=== PATIENT | male | born 1955 | race Caucasian/White ===

== ENCOUNTER 2023-11-08 09:51 | Inpatient (IN) ==
--- NOTE | 2023-10-16 11:18 | PAT Medication Instructions ---
Medication Instructions Date of Service October 16, 2023 Home Medications aspirin 81 mg chewable tablet 81 mg PO QAM atorvastatin 40 mg tablet (Lipitor) 40 mg PO HS finasteride 5 mg tablet 5 mg PO HS losartan 25 mg tablet 25 mg PO QAM melatonin 5 mg capsule 10 mg PO HS PRN Sleep metoprolol succinate 25 mg tablet,extended release 24 hr 25 mg PO QAM wehwuokh-bhb-kmslh acid 0.4 mg-lycopene 300 mcg-lutein 250 mcg tablet (Centrum Silver) 1 tab PO QAM Steroid Med 1 tab PO UD clopidogrel 75 mg tablet (Plavix) 75 mg PO QAM terazosin 2 mg tablet 2 mg PO HS Continue as directed Steroid Med 1 tab PO UD ASK your prescriber and surgeon aspirin 81 mg chewable tablet 81 mg PO QAM clopidogrel 75 mg tablet (Plavix) 75 mg PO QAM DO NOT take the morning of surgery losartan 25 mg tablet 25 mg PO QAM kwxjhvnm-ujt-cylbm acid 0.4 mg-lycopene 300 mcg-lutein 250 mcg tablet (Centrum Silver) 1 tab PO QAM Take morning of surgery With a small sip of water, OTHERWISE NOTHING TO EAT OR DRINK AFTER MIDNIGHT: metoprolol succinate 25 mg tablet,extended release 24 hr 25 mg PO QAM Take evening before surgery atorvastatin 40 mg tablet (Lipitor) 40 mg PO HS finasteride 5 mg tablet 5 mg PO HS melatonin 5 mg capsule 10 mg PO HS PRN Sleep (if needed) terazosin 2 mg tablet 2 mg PO HS Other Notes If you have any questions please call us at [phone] or [phone] or [phone] or [phone]
--- NOTE | 2023-10-17 13:00 | Anesthesiology Consultation ---
Date of Service October 17, 2023 Assessment & Plan (1) Encounter for pre-operative examination: Plan - Please send optimization form and EKG to provider relations representative (Dr. Pena)- need response regarding abnormal EKG - Attempting to get Holter monitor (awaiting final reading/signature by Dr. Chance/S[facility] cardio per cardio office 10/18/23) Chart Review Chart Review: Acceptable Risk for Surgery (pending response from provider relations representative regarding EKG and Holter monitor results if available ) and Patient seen in Pre Admission Testing - Check BSG AM DOS - Per patient request- please send preop testing to provider relations representative for continuity of care (Dr. Pena) - Please send preop testing to PCP for continuity of care (due to elevated glucose) (FYI- response not needed) Per PAT appt on 10/17/23, was around granddaughter several days ago- no Covid or flu. Patient without symptoms. No recent illness/disease positive tests. Will leave to surgeon's discretion if preop Covid testing needed Last seen by neurology 08/14/2023 = patient seen for evaluation of tremors and headaches. Reports CVA x 2. Most recent stroke March 2023. Characterized by transient weakness and numbness affecting the left upper limb, resolving within a few hours. History of [place] approximately 5 years ago with coronary stenting. Follows with provider relations representative. Will request imaging from hospitalization in March 2023 for review. 30-day mobile cardiac outpatient teletypesetter monitor ordered. Continue current medications. If monitoring analyst does reveal evidence of atrial fibrillation, would recommend an anticoagulant such as Eliquis. Addendum 08/14/2023 = "Additional records received. Echocardiogram normal. Carotid ultrasound indicated less than 50% stenosis of the internal carotid arteries. Brain MRI revealed an acute to subacute infarct involving the right postcentral sulcus. CTA of the head unremarkable. CTA of the neck indicated an 80% stenosis of the proximal right internal carotid artery. As above, although the CTA of the neck suggested an 80% stenosis of the proximal right ICA, this finding was apparently not seen on the carotid ultrasound. Nonetheless, his recent stroke involving the right cerebral hemisphere would potentially indicate a symptomatic right ICA stenosis. I would like this patient to have a follow-up CT angiogram of the neck completed as well. Order placed. " Patient last seen by cardiology 12/14/2022 = seen for cardiac evaluation. Continue current medications. Follow-up in 1 year. Teaching & Discussion Pre-Anesthesia Teaching/Discussion Notes: Instructed NPO after midnight before surgery,except medications with 15 cc of water. Medication instructions provided according to the PAT guidelines. History Surgery Operation Date: 11/08/23 10:50 Proposed Procedures p Right Transcarotid Artery Revascularization - Lucas Martin MD Height/Weight Height: 6 ft 9 in Weight: 114 kg Allergies Allergy/AdvReac Type Severity Reaction Status Date / Time No Known Allergies Allergy Verified 10/16/23 09:10 Medications Home Medications Medication Instructions Recorded Confirmed Last Taken aspirin 81 mg chewable tablet 81 mg PO QAM 08/14/23 10/16/23 Unknown atorvastatin 40 mg tablet (Lipitor) 40 mg PO HS 08/14/23 10/16/23 Unknown finasteride 5 mg tablet 5 mg PO HS 08/14/23 10/16/23 Unknown losartan 25 mg tablet 25 mg PO QAM 08/14/23 10/16/23 Unknown melatonin 5 mg capsule 10 mg PO HS PRN Sleep 08/14/23 10/16/23 Unknown metoprolol succinate 25 mg 25 mg PO QAM 08/14/23 10/16/23 Unknown tablet,extended release 24 hr xjirhnih-gcw-hlqzn acid 0.4 1 tab PO QAM 08/14/23 10/16/23 Unknown mg-lycopene 300 mcg-lutein 250 mcg tablet (Centrum Silver) clopidogrel 75 mg tablet (Plavix) 75 mg PO QAM 10/16/23 10/16/23 Unknown terazosin 2 mg tablet 2 mg PO HS 10/16/23 10/16/23 Unknown prednisone 20 mg tablet See Rx Instructions .Route .COMPLEX 10/17/23 10/17/23 Unknown Past Medical History Medical History (Updated 10/18/23 @ 10:22 by Nabila Gimenez PA-C) Arthritis CAD (coronary artery disease) s/p cardiac stent 2021 Carotid stenosis >80% stenosis to right ICA per 08/2023 neck CTA recently re-started on plavix History of stroke 2015 and 03/2023 no residual deficits Hx of myocardial infarction at age 65 Hyperglycemia Glucose 303 on preop labs 10/17/23- Hgb A1C 6.4 that same day Hyperlipidemia Hypertension Torn Achilles tendon left> following with ortho- no boot needed at this time- finished steroid (Prednisone) 10/18/23- using topical treatment and exercise Exercise / Class Metabolic Activity II 4-5 Yardwork/Stairs/Walk up hill (one flight of stairs- no chest pain or SOB ) Past Family History Family History Other No family history of adverse response to anesthesia Past Surgical History Surgical History History of appendectomy History of colonoscopy History of heart artery stent 2021 1 stent placed>[facility] in [place] Dr. Vann) Past Anesthesia History No Hx of Anesthesia Complications and No Family Hx of Anesthesia Complications History of PONV No Hx of PONV and No Hx of Motion Sickness Social History Smoking Status: Never smoker Do You Dip or Chew Tobacco: No Hx Alcohol Use: Yes Alcohol type: wine alcohol intake frequency: a few times a month Hx Substance Use: No substance use type: does not use Review of Systems Hx of snoring - no sleep study Patient denies chest pain, shortness of breath, dyspnea on exertion, reflux, cough, wheezing, palpitations. No hx of seizures. No hx of blood clots or blood transfusions Physical Exam Vital Signs VITALS BP 125/77 P 75 TEMP 98.0 SP02 94% RESP 16 Constitutional no acute distress ENMT Mouth: no TMJ clicking Thyromental Distance: > or= 3.5 Finger Breadths (3.5) Mallampati Class: I Permanent bridge upper front bridge Crowns to molars Neck neck extension not limited Respiratory normal respiratory effort; no respiratory distress Auscultation: lungs clear to auscultation bilaterally; no wheezes Cardiovascular Rate/Rhythm: regular rate and regular rhythm Heart Sounds: no murmur Vessels: no carotid bruit Musculoskeletal Spine: no pain with cervical ROM Extremities: extremities normal to inspection Psychiatric Orientation: alert Lab Results Anesthesia Preop Results Results Anesthesia Widget: WBC 7.80 K/ul (4.8-10.8) 10/17/23 Hgb 15.1 g/dl (14.0-18.0) 10/17/23 Hct 45.4 % (42.0-52.0) 10/17/23 Plt 238 K/uL (130-400) 10/17/23 Na 135 mmol/L (136-145) L 10/17/23 K 4.6 mmol/L (3.5-5.1) 10/17/23 Cl 99 mmol/L (98-107) 10/17/23 CO2 27 mmol/L (21-32) 10/17/23 BUN 25 mg/dl (6-23) H 10/17/23 Creat 0.88 mg/dl (0.6-1.4) 10/17/23 Glucose Level 303 mg/dl (70-99(Fasting)) H* 10/17/23 PT 11.2 Seconds (9.0-12.0) 10/17/23 PTT 25 Seconds (21-31) 10/17/23 INR 1.0 (0.9-1.1) 10/17/23 TSH 1.540 uIU/mL (0.30-4.50) 08/23/23 HA1c 6.4 % (4.5-5.6) H 10/17/23 Blood Type A Positive 10/17/23 Antibody Screen NEGATIVE 10/17/23 Testing Laboratory Results Elevated glucose (lab called critical result to PCP); Hgb A1C 6.4- surgeon is okay to proceed- will send labs to PCP for continuity of care Electrocardiogram Date: 10/17/23 Findings: + NSR @ (71bpm) T wave abnormality, consider inferolateral ischemia Chest X-Ray Date: 10/17/23 Findings: + NAD Echocardiogram Date: 03/07/23 EF: 55 to 60% LV Function: normal RWMA: + none Other Findings: + diastolic dysfunction (Grade 1) LV wall thickness is upper limits of normal. RV is normal in size and systolic function RVSP 28 mmHg Mild MR Stress Test Date: 05/11/21 Type: nuclear No evidence of myocardial ischemia or infarction. LVEF 50% Other Testing CTA of neck 08/24/2023 = redemonstration of stable appearance of short segment severe focal stenosis at the origin of the right cervical ICA, greater than 80%. No additional hemodynamically significant stenosis, aneurysm, dissection or abrupt vessel occlusion otherwise identified on this study. Mild atherosclerotic changes. Multilevel spondylitic changes of the cervical spine again seen with mild canal and foraminal stenosis. No acute osseous abnormality. Stable chronic opacification and wall thickening of the left maxillary sinus without air-fluid levels. CT of head 03/07/2023 = suspect patchy ill-defined hypodense area in the left periventricular region on the left centrum semioval which may be suggestive of acute/subacute infarct. Recommend diffusion weighted MRI if clinical and p hysical examination findings match the suspected lesion. No acute intracranial hemorrhage. Age-related involutional changes and mild cerebral small vessel disease. Head CT 03/07/23= Normal Head CT angiogram
--- NOTE | 2023-11-08 07:53 | History & Physical Report ---
Date of Service November 08, 2023 Assessment & Plan (1) Stenosis of right carotid artery: Plan: Patient is admitted for a right TCAR. I have discussed the risks options and benefits of the procedure with the patient. The patient understands the risks options and benefits and agrees to the procedure. History of Present Illness Chief Complaint: Right internal carotid artery stenosis Primary Care Provider: Olvin Nava DO Mr Churchill is a 67-year-old gentleman who claims to have had a stroke 8 to 9 years ago. He claims recently in March of last year he had left arm numbness and the funny feeling in his left arm. Workup showed an 80% stenosis of his right internal carotid artery. He recovered from the TIA without any residual. He has not had any further TIAs. He also has no complaints of claudication. He is on aspirin at this point. He was on Plavix for a short period of time and this was stopped. Allergies Allergy/AdvReac Type Severity Reaction Status Date / Time No Known Allergies Allergy Verified 10/16/23 09:10 Home Medications Medication Instructions Recorded Confirmed Type aspirin 81 mg chewable tablet 81 mg PO QAM 08/14/23 10/16/23 History atorvastatin 40 mg tablet (Lipitor) 40 mg PO HS 08/14/23 10/16/23 History finasteride 5 mg tablet 5 mg PO HS 08/14/23 10/16/23 History losartan 25 mg tablet 25 mg PO QAM 08/14/23 10/16/23 History melatonin 5 mg capsule 10 mg PO HS PRN Sleep 08/14/23 10/16/23 History metoprolol succinate 25 mg 25 mg PO QAM 08/14/23 10/16/23 History tablet,extended release 24 hr mylynwrz-bmc-srlda acid 0.4 1 tab PO QAM 08/14/23 10/16/23 History mg-lycopene 300 mcg-lutein 250 mcg tablet (Centrum Silver) clopidogrel 75 mg tablet (Plavix) 75 mg PO QAM 10/16/23 10/16/23 History terazosin 2 mg tablet 2 mg PO HS 10/16/23 10/16/23 History prednisone 20 mg tablet See Rx Instructions .Route .COMPLEX 10/17/23 10/17/23 History Past Med/Surg History Medical History Hyperglycemia Glucose 303 on preop labs 10/17/23- Hgb A1C 6.4 that same day CAD (coronary artery disease) s/p cardiac stent 2021 Torn Achilles tendon left> following with ortho- no boot needed at this time- finished steroid (Prednisone) 10/18/23- using topical treatment and exercise Arthritis History of stroke 2015 and 03/2023 no residual deficits Carotid stenosis >80% stenosis to right ICA per 08/2023 neck CTA recently re-started on plavix Hx of myocardial infarction at age 65 Hypertension Hyperlipidemia Surgical History History of colonoscopy History of appendectomy History of heart artery stent 2021 1 stent placed>[facility] in [place] Dr. Vann) Family History Other No family history of adverse response to anesthesia Social History Smoking Status: Never smoker Second Hand Exposure: Yes (as a child); Do You Dip or Chew Tobacco: No; Hx Alcohol Use: Yes Alcohol type: wine Hx Substance Use: No Preferred Language: Yoruba Manager Story Required: No Beliefs That Will Affect Care: None Current Living Situation: Spouse Feels Safe at Home: Yes Safety Concerns: Feels Safe At This Time Assistive Devices: Brace/Splint/Immobilizer and Glasses Review of Systems All systems reviewed & are unremarkable except as noted in HPI & below Physical Exam Physical Exam: Physical exam he is awake alert and oriented x 3. His vital signs are as per the chart. He is in no apparent distress. His lungs are clear. His heart had a regular rate and rhythm. Abdominal exam is benign. Vascular exam shows radials carotids and superficial temporal arteries 3+2 bilaterally. There are no carotid bruits. Femorals and pedal pulses are all +2 bilaterally. Neurologic exam is intact to motor and sensory function.
--- NOTE | 2023-11-08 10:37 | History & Physical Bridge Note ---
Date of Service November 08, 2023 History & Physical Bridge Note I have examined the patient, reviewed the History & Physical and in the interval since the performance of the History & Physical I have noted the following changes of clinical significance: no changes noted
[2023-11-08] MEDS: LACTATED RINGER'S 1,000 ML BAG IV SCH (10:52)
[2023-11-08] MEDS ORDERED: ATROPINE SULFATE 0.1 MG/ML 10ML SYR IV PRN (12:34)
[2023-11-08] MEDS ORDERED: ONDANSETRON INJ 2 MG/ML 2 ML VIAL IV PRN (12:34)
[2023-11-08] MEDS ORDERED: NALOXONE HCL 0.4 MG/1 ML VIAL/CARP IV PRN (12:34)
[2023-11-08] MEDS ORDERED: FLUMAZENIL 0.1 MG/1 ML 10 ML VIAL IV PRN (12:34)
[2023-11-08] MEDS ORDERED: LABETALOL HCL IV 5 MG/ML 20ML IV PRN (12:34)
[2023-11-08] MEDS ORDERED: fentaNYL citrate PF 100 MCG/2 ML VIAL IV PRN (12:34)
[2023-11-08] MEDS ORDERED: PROMETHAZINE HCL 6.25 MG in SODIUM CHLORIDE 0.9% 50 ML IV PRN (12:34)
[2023-11-08] MEDS ORDERED: ePHEDrine sulfate 50 MG/ML AMP IV PRN (12:34)
[2023-11-08] MEDS ORDERED: fentaNYL citrate PF 100 MCG/2 ML VIAL ONE ×4 (13:02→14:09)
[2023-11-08] MEDS ORDERED: MIDAZOLAM HCL 1 MG/ML 2ML VIAL ONE (13:02)
[2023-11-08] MEDS ORDERED: ROCURONIUM BROMIDE 10 MG/ML 5 ML VIAL IV ONE (13:02)
[2023-11-08] MEDS ORDERED: DEXAMETHASONE SOD INJ 4 MG/ML VIAL ONE (13:02)
[2023-11-08] MEDS ORDERED: PROPOFOL IV EMULSION 10 MG/ML 20 ML VIAL IV ONE (13:02)
[2023-11-08] MEDS ORDERED: LIDOCAINE 2% 2 ML VIAL/AMP(20MG/ML) INFIL ONE (13:02)
[2023-11-08] MEDS ORDERED: GLYCOPYRROLATE 0.2 MG/ML VIAL ONE (13:02)
[2023-11-08] MEDS ORDERED: ONDANSETRON INJ 2 MG/ML 2 ML VIAL ONE (13:02)
[2023-11-08] MEDS ORDERED: SUGAMMADEX SODIUM 200 MG/2 ML VIAL IV ONE (13:07)
[2023-11-08] MEDS ORDERED: HEPARIN SOD (PORCINE) 1000 UNIT/ML ONE (13:08)
[2023-11-08] MEDS ORDERED: PHENYLEPHRINE HCL 25 MG/250 ML NSS IV ONE (13:11)
[2023-11-08] MEDS: CEFAZOLIN 2,000 MG/15 ML SYR IV SCH (13:28)
[2023-11-08] MEDS ORDERED: PROTAMINE SULFATE 10 MG/ML 5 ML VIAL IV ONE (14:44)
[2023-11-08] MEDS: THROMBIN FOR SOLN 20000 UNIT KIT ONE (14:53)
[2023-11-08] MEDS: BUPIVACAINE/EPINEPHRINE 0.5% MPF 1:200,000 10 ML VIAL ONE (14:54)
[2023-11-08] MEDS: VISIPAQUE IV ONE (14:55)
[2023-11-08] MEDS: GELATIN SPONGE SZ 100 ONE (14:56)
[2023-11-08] MEDS: ceFAZolin 330 MG/ML 1 GM VIAL ONE (14:58)
--- NOTE | 2023-11-08 15:00 | Operative Report ---
Post Operative Report Pre & Post Diagnosis Operation Date: 11/08/23 11:20 Pre-Op Diagnosis: Right Carotid Artery Stenosis Post-Op Diagnosis: Right Carotid Artery Stenosis I identified the patient and participated in the time-out.: Yes Procedure Operation Date: 11/08/23 11:20 Actual Procedures p Right Transcarotid Artery Revascularization(Right) ultrasound localization of left femoral vein- Lucas Martin MD Surgeon Lucas Martin MD Visually Impaired Teacher MD [facility] Estimated Blood Loss 15 (.) Findings Consistent with Post-Op Diagnosis Stenosis of the proximal right internal carotid artery. Following stent deployment, less than 20% residual stenosis of the right internal carotid artery on multiple projections Specimens None Anesthesia Type General Complications none None Disposition Accompanied Patient To Recovery: No Disposition: Recovery Room Indications Symptomatic stenosis of the right internal carotid artery measuring > 80% Description of Procedure The patient was taken to the operating room and placed in supine position. After general anesthesia was accomplished the right-side of the neck and left groin were prepped and draped in a sterile manner. A transverse 4cm incision was made on the right neck over the sternal and clavicular heads of the sternocleidomastoid muscle and below the omohyoid. Subcutaneous tissue and platysma were divided using electrocautery. Dissection using Metzenbaum scissors proceeded and the carotid sheath was identified medially. It was divided longitudinally. The internal jugular was retracted medially. The common carotid artery was identified with the Vagus nerve posterolateral. The common carotid artery was mobilized with Metzenbaum scissors and umbilical tape was placed around the artery. Once sufficient length, about 2cm of the common carotid were mobilized, a 5-0 Proline suture was used to place a U-Stitch in the anterior surface of the right common carotid artery. Attention was turned to the left common femoral vein which was then accessed under ultrasound guidance using a micropuncture needle. This was exchanged for the Venous Return Sheath over the provided 0.035'' wire. Blood was aspirated from the flow line followed by flushing of the venous sheath with heparinized saline. The sheath was sutured in place to the patient's skin. 8000U of heparin was then given to obtain an ACT of 277. A micropuncture needle was used to access the common carotid artery in the center of the U-stitch. The micropuncture wire was then advance 4cm into the common carotid artery and the micropuncture needle was removed. The micropuncture sheath was advanced 2-3cm into the common carotid artery and the wire and dilator were removed. Next a 0.035'' J guidewire was was inserted and placed just proximal to the right internal carotid artery lesion without engaging the lesion. The micropuncture sheath was exchanged over the guidewire and the Transcarotid Arterial Sheath was advanced to the 2.5cm marker in correct coaxial orientation and the J wire and dilator were removed. The Sheath was sutured to the patient and then flushed with heparinized saline. No air bubbles visualized during flushing The flow controller was connected to the Transcarotid arterial sheath. Arterial blood was allowed to passively fill the device completely to which it was then connected to the venous return sheath. The flow controller was set to high. The common carotid artery proximal to the access point was then clamped with a Vini and flow reversal was confirmed. A right carotid angiogram was then performed and the right internal carotid artery lesion was marked. HR and systolic blood pressures were adequate with HR of about 80 and blood pressure between 140 and 160 systolic. The lesion was then crossed using a 0.014'' guidewire. The lesion was then pre-dilated using a 5.5mm x 25mm balloon. This balloon was then exchanged and primary stenting was performed with the Transcarotid stent, appropriately sized 7-9mm tapered 30mm Enroute stent. Completion carotid angiography demonstrated patent stent with <30% residual stenosis. No post-dilation was performed. Antegrade flow was restored following release of the common carotid artery clamp. The arterial sheath was removed and U-Stitch tied. The femoral venous sheath was removed and pressure held for 5 min with adequate hemostasis. Adequate hemostasis was seen of the carotid artery. The wound was inspected and adequate hemostasis was obtained. It was then closed with a running 3-0 Vicryl suture for the platysmal layer and a 4-0 subcuticular Vicryl suture for the skin edges. Dermabond was used for dressing. Patient awoke from anesthesia without difficulties. Was neurovascularly intact, moving all extremities and following commands at case completion. The patient left the operating room in satisfactory condition and tolerated the procedure well Dr. Martin was present and scrubbed for the entire procedure. A total of 29mGy, 2.5 min of fluoroscopy time, and 15cc of contrast were used during the procedure. I attest to the content of the Intraoperative Record and any orders documented therein. Any exceptions are noted below. Supervising Physician Co-Signing Physician Notes Lucas Martin MD
--- NOTE | 2023-11-08 15:01 | Post Operative Brief Note ---
Immediate Post Op Note v1 Date of Surgery November 08, 2023 Pre & Post Diagnosis Operation Date: 11/08/23 11:20 Pre-Op Diagnosis: Right Carotid Artery Stenosis Post-Op Diagnosis: Right Carotid Artery Stenosis I identified the patient and participated in the time-out.: Yes Procedure Operation Date: 11/08/23 11:20 Actual Procedures p Right Transcarotid Artery Revascularization(Right) - Lucas Martin MD Ultrasound localization of left common femoral vein Surgeon Lucas Martin MD Accounting Manager Assistant Controller MD Linda PalmMinarchick,PAC Estimated Blood Loss 15 (.) Findings Consistent with Post-Op Diagnosis Anesthesia Type General Complications none Disposition Accompanied Patient To Recovery: No Disposition: Recovery Room
[2023-11-08] MEDS: BUPIVACAINE/EPINEPHRINE 0.5% MPF 1:200,000 30 ML VIAL ONE (15:02)
--- NOTE | 2023-11-08 16:11 | Anesthesiology Progress Note ---
Date of Service November 08, 2023 Anesthesia Post Procedure Vital Signs Vital Signs: Temp Pulse Pulse Resp BP BP BP 11/08/23 16:02 70 19 163/68 H 165/84 H 11/08/23 15:55 76 16 171/72 H 11/08/23 15:45 70 18 177/74 H 11/08/23 15:35 72 16 169/74 H 11/08/23 15:25 80 18 172/76 H 11/08/23 15:15 36 C L 88 15 176/75 H 173/88 H 11/08/23 10:13 36.6 C 69 20 169/88 H 171/101 H Pulse Ox O2 Del Method O2 Flow Rate 11/08/23 16:02 96 Room Air 11/08/23 15:55 96 Oxymask 2 11/08/23 15:45 98 Oxymask 4 11/08/23 15:35 99 Oxymask 4 11/08/23 15:25 99 Oxymask 6 11/08/23 15:15 95 Oxymask 6 11/08/23 10:13 97 Room Air Transfer of Care Handoff Completed per policy Notes Mental Status: alert / awake / arousable Patient Amnestic to Procedure: Yes Nausea / Vomiting: adequately controlled Pain: adequately controlled Airway Patency, RR, SpO2: stable & adequate BP & HR: stable & adequate Hydration State: stable & adequate Anesthetic Complications: no major complications apparent and Pt Satisfied with anesthetic care
[2023-11-08] MEDS ORDERED: oxyCODONE/ACETAMINOPHEN 5mg/325mg TAB PO PRN (16:46)
[2023-11-08] MEDS: LACTATED RINGER'S 1,000 ML IV SCH (16:53)
[2023-11-08] MEDS ORDERED: MELATONIN 3 MG TAB PO PRN (17:01)
[2023-11-08] MEDS ORDERED: STAT IV Infusion **Titration per Protocol STA (17:31)
[2023-11-08] MEDS: NITROPRUSSIDE SODIUM 50 MG in DEXTROSE 5% 500 ML IV SCH (17:55)
--- OUTSIDE RECORDS SUMMARY | 2023-11-08 18:47 | External Medical Summary | Continuity of Care Document ---
Author Name Unknown Organization [facility] [address] Address [address] [place], [place] [id number] Care Team Providers Care Awning Hanger Helper Name Role Phone Olvin Nava Primary Care Physician [phone] [id number] Date(s): 10/17/23 - 10/17/23 [facility] [address] [facility] [address] [facility], [facility] [address] [place], [place] [phone] Encounter Diagnosis Occlusion and stenosis of bilateral carotid arteries(Final) - Discharge Disposition: Home or Self Care Attending Physician: MD Martin Eugene J Referring Physician: MD Martin Eugene J Allergies, Adverse Reactions, Alerts No Known Allergies Medications aspirin 81 mg oral delayed release tablet Start: 10/05/23 9:18:00 EST, 1 tab, PO, Daily Start Date: 10/05/23 Status: Ordered atorvastatin 40 mg oral tablet Start: 10/05/23 9:20:00 EST, 1 tab, PO, Daily Start Date: 10/05/23 Status: Ordered Centrum Start: 10/05/23 9:17:00 EST, 1 tab, PO, Daily Start Date: 10/05/23 Status: Ordered finasteride 5 mg oral tablet Start: 10/05/23 9:20:00 EST, 1 tab, PO, Daily Start Date: 10/05/23 Status: Ordered losartan 25 mg oral tablet Start: 10/05/23 9:20:00 EST, 1 tab, PO, Daily Start Date: 10/05/23 Status: Ordered melatonin 10 mg oral tablet Start: 10/05/23 9:20:00 EST, 1 tab, PO, qhs, PRN: as needed for insomnia Start Date: 10/05/23 Status: Ordered metoprolol succinate 25 mg oral tablet, extended release Start: 10/05/23 9:19:00 EST, 1 tab, PO, Daily Start Date: 10/05/23 Status: Ordered Plavix 75 mg oral tablet Start: 10/05/23 9:51:00 EST, 1 tab, PO, Daily, Disp# 30 tab, Refills: 11, Pharmacy: [id number] Start Date: 10/05/23 Status: Ordered terazosin 2 mg oral capsule Start: 10/05/23 9:20:00 EST, 1 cap, PO, Daily Start Date: 10/05/23 Status: Ordered Problem List Condition Confirmation Course Effective Dates Status Health St atus Informant Carotid stenosis, bilateral Confirmed Active Results Laboratory List Name Date Platelet Function (P2Y12 Receptor) (PLT FUNCTION P2Y12) 10/17/23 Most recent to oldest [Reference Range]: 1 P2Y12 Platelet Function [194-418 PRU] 67 PRU 1 *LOW* (10/17/23 10:36 AM) 1Result Comment: PRU reference range is 194-418 (healthy adults, no drug treatment). Post Drug Results: Lower PRU levels are expected following treatment with antiplatelet drugs. Post-treatment values are usually below the stated reference range above. The post-drug PRU values reported in the [employer]NOW P2Y12 package insert are 18-435. This broader range reflects the variability in drug response and is consistent with significant numbers of patients with decreased sensitivity to P2Y12 receptor antagonists (prasugrel or clopidogrel). Clinical studies suggest an on-treatment PRU>230 indicates less than optimal response to therapy, and PRU<208 at 12-24 hours after percutaneous intervention or during follow-up is associated with a lower risk of cardiovascular events (1). (1).Standard-vs high-dose clopidogrel based on platelet function testing after percutaneouscoronary intervention: the GRAVITAS randomized trial. Lucho et al. ROSALINDA. 2010October 20; 305(11): 7646-4857. 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
--- NOTE | 2023-11-08 18:51 | Critical Care Consultation ---
Date of Consultation November 08, 2023 Assessment & Plan (1) Stenosis of right carotid artery: (2) H/O: stroke: (3) CAD (coronary artery disease): Plan Reason Critically Ill: S/p Right sided TCAR for symptomatic right carotid artery stenosis. POD #0 Neuro - Hx CVA/TIA, ETOH use, Pain from surgical incision CAM ICU: Negative - no residual effects from previous CVA/TIA- currently without neurological deficits - Continue statin - antiplatelet medications per vascular surgery - Follow neurological exams - He endorses EOTH use 5-7 beers per outing 2-3 times per week- endorses he has been 3 or more days before without a drink and has not suffered any symptoms of withdrawl - follow while in house - Tiered pain control already in place - follow Cardiac - DHARMESH stenosis s/p RIGHT TCAR, Hx CAD with stent to quileute artery, HTN, HLD - S/P RIGHT TCAR - POD #0 - Bp parameters per primary surgical service - vasoactive/dilators per primary surgical service - Antiplatelet medications per primary surgical service - Continue BB, MICKEY/ARB/Statin as hemodynamics allow as well as following of renal indices Respiratory - No acute needs - Reports no hx of smoking as well as no use of CPAP/BiPAP at night - ICS GI - No acute needs - Advance diet as able per primary surgical service RENAL/LYTES - No acute needs - BPH - follow with bladder scans as needed, straight cath if needed - Continue Finasteride ENDO - Elevated serum glucose without history of DM - ICU hyperglycemia protocol goal <180mg/dl HEME - No acute needs - Transfusions per primary surgical service - labs per primary surgical service ID - No concern at this time for infectious etiology LINES/IV ACCESS - PIV, arterial line Continue use of these lines DVT PROPHYLAXIS - SCDS, ASA, Plavix DISPO: ICU while postoperative and on vasoactive medications. I have personally spent 40 minutes of critical care time in the direct management of this patient. This is a life/limb threatening event. This includes time spent evaluating patient, direct bedside care, chart review, placing orders, interpretation of diagnostic studies, discussion with consultants, patient, and family members, as well as other required patient management activities. This time is exclusive of all separately billable procedures, and separate from and in addition to any other critical care service time. Thank you for allowing us to participate in the care of this patient. Please refer to my attending physician's documentation for any further recommendations. History of Present Illness Reason for Consultation: S/P Right TCAR Requesting Physician: Lucas Martin MD Attending Physician: Lucas Martin MD History of Present Illness 67 YOM with medical history of: CVA/TIA (March 2023), NH with stent (~2018), HLD< BPH, Arthritis, ETHO use. Following his CVA workup he was noted to have 80% stenosis of hie DHARMESH. He underwent a right TCAR today with Vascular Surgery Dr. Martin, under ORE MINER with EBL of 15ml. He is seen in the ICU where he is awake and alert, moving all extremities, talking without difficulty, right neck incision intact with no drainage or hematoma and left groin site intact without hematoma or drainage. He was initiated on Nitroprusside infusion for elevated blood pressure by primary surgical team and remains on such with systolic goal 130-160. He denies pain at this time. Patient will remain in ICU to follow hemodynamics, surgical incisions, and neurological examinations. CODE: FULL Allergies Allergy/AdvReac Type Severity Reaction Status Date / Time No Known Allergies Allergy Verified 11/08/23 10:09 Home Medications Medication Instructions Recorded Confirmed Type aspirin 81 mg chewable tablet 81 mg PO QAM 08/14/23 11/08/23 History atorvastatin 40 mg tablet (Lipitor) 40 mg PO HS 08/14/23 11/08/23 History finasteride 5 mg tablet 5 mg PO HS 08/14/23 11/08/23 History losartan 25 mg tablet 25 mg PO QAM 08/14/23 11/08/23 History melatonin 5 mg capsule 10 mg PO HS PRN Sleep 08/14/23 11/08/23 History metoprolol succinate 25 mg 25 mg PO QAM 08/14/23 11/08/23 History tablet,extended release 24 hr gbbzkbpj-[id number]-[id number] acid 0.4 1 tab PO QAM 08/14/23 11/08/23 History mg-lycopene 300 mcg-lutein 250 mcg tablet (Centrum Silver) clopidogrel 75 mg tablet (Plavix) 75 mg PO QAM 10/16/23 11/08/23 History terazosin 2 mg tablet 2 mg PO HS 10/16/23 11/08/23 History Patient History Medical History (Updated 11/08/23 @ 19:20 by LAWANDA Parker) Hyperglycemia Glucose 303 on preop labs 10/17/23- Hgb A1C 6.4 that same day CAD (coronary artery disease) s/p cardiac stent 2021 Torn Achilles tendon left> following with ortho- no boot needed at this time- finished steroid (Prednisone) 10/18/23- using topical treatment and exercise Arthritis History of stroke 2015 and 03/2023 no residual deficits Carotid stenosis >80% stenosis to right ICA per 08/2023 neck CTA recently re-started on plavix Hx of myocardial infarction at age 65 Hypertension Hyperlipidemia Surgical History History of colonoscopy History of appendectomy History of heart artery stent 2021 1 stent placed>[facility] in [place] Dr. Vann) Family History Other No family history of adverse response to anesthesia Social History Smoking Status: Never smoker Second Hand Exposure: Yes (as a child); Do You Dip or Chew Tobacco: No; Hx Alcohol Use: Yes Alcohol type: hard liquor Hx Substance Use: No Preferred Language: Faroese Communication Ability: Effective Millwright Apprentice Required: No Beliefs That Will Affect Care: None Current Living Situation: Spouse Other Information That Helps Us Care for You: No Feels Safe at Home: Yes Safety Concerns: Feels Safe At This Time Assistive Devices: None Review of Systems Review of Systems: REVIEW OF SYSTEMS: Constitutional: No fever, sweats or chills Eyes: No diplopia, no worsening or blurred vision ENT: normal hearing, no trouble swallowing Respiratory: No cough, sputum, dyspnea at rest or on exertion Cardiovascular: No chest pain, tightness or palpitations Abdomen: No pain, nausea, vomiting, diarrhea or constipation Musculoskeletal: (+) chronic knee and shoulder joint pain, NO calf pain, swelling Neurologic: (+) previous TIA/CVA without residual, No weakness, numbness/tingling, or balance problems Psychiatric: (+) ETOH use, No anxiety or depression Skin: No rash or itch Physical Exam Physical Exam: PHYSICAL EXAM: General: awake, alert, no apparent distress Head: Normocephalic, atraumatic ENT: PERRLA, EOMI, no pharyngeal exudate, mucous membranes moist Neuro: AAO x 3, speech clear and appropriate, strength intact bilaterally 5/5, sensation intact and equal all extremities and dermatomes, no pronator drift, no facial droop Chest: equal rise and fall of the chest, no accessory muscle use, no heaves or thrills, Clear to auscultation, on room air, Cardiac: Regular rate and rhythm, telemetry reviewed- NSR no ectopy, skin warm dry, cap refill <3 seconds, peripheral pulses +2 no JVD, no murmur, no edema, Left groin site covered with tegaderm and 4x4 without strike through and no hematoma, peripheral pulses palpable, right neck incision intact with no drainage or hematoma GI: NABS x 4 quadrants, soft, nontender to palpation, no rebound, guarding or tenderness : Spontaneously voiding, no pain, no CVA tenderness, Psych: Normal mood and affect Skin: no rash or erythema, incisions as above Results & Data Results & Data Vital Signs (Past 12 Hours) Vital Signs Temp Pulse Pulse Pulse Resp BP BP 11/08/23 17:30 75 12 11/08/23 17:15 78 19 11/08/23 17:00 162/95 H 11/08/23 17:00 73 17 11/08/23 16:46 37 C 11/08/23 16:45 68 12 11/08/23 16:45 78 11/08/23 16:39 77 16 11/08/23 16:39 177/106 H 11/08/23 16:13 36.5 C 75 20 11/08/23 16:05 70 19 11/08/23 15:55 76 16 11/08/23 15:45 70 18 11/08/23 15:35 72 16 11/08/23 15:25 80 18 11/08/23 15:15 36 C L 88 15 11/08/23 10:13 36.6 C 69 20 169/88 H BP BP Pulse Ox O2 Del Method O2 Flow Rate 11/08/23 17:30 92 11/08/23 17:15 94 11/08/23 17:00 11/08/23 17:00 93 Room Air 11/08/23 16:46 11/08/23 16:45 99 11/08/23 16:45 11/08/23 16:39 98 11/08/23 16:39 11/08/23 16:13 173/73 H 96 Room Air 11/08/23 16:05 163/68 H 165/84 H 96 Room Air 11/08/23 15:55 171/72 H 96 Oxymask 2 11/08/23 15:45 177/74 H 98 Oxymask 4 11/08/23 15:35 169/74 H 99 Oxymask 4 11/08/23 15:25 172/76 H 99 Oxymask 6 11/08/23 15:15 176/75 H 173/88 H 95 Oxymask 6 11/08/23 10:13 171/101 H 97 Room Air Laboratory Results Abnormal lab results 11/08/23 11/08/23 11/08/23 Range/Units 10:10 14:19 14:52 Activ Coag Time Kaolin 277 H 152 H (94-140) SECONDS POC Glucose 125 H (70-99) mg/dl Medications Administered Lactated Ringer's (Lr) 1,000 mls @ 125 mls/hr IV .Q8H [facility] Stop: 12/08/23 16:45 Last Infusion: 11/08/23 18:10 Dose: 0 mls/hr Documented By: Admin: 11/08/23 16:53 Dose: 125 mls/hr Documented By: JAZMINE Sodium Nitroprusside 50 mg/ (Dextrose) 502 mls @ 33.162 mls/hr IV .Q15H9M JESSENIA; Protocol Stop: 12/08/23 17:44 Last Titration: 11/08/23 19:02 Dose: 0.5 mcg/kg/min, 33.2 mls/hr Documented By: MAGEN Co-signed By: JAZMINE Titration: 11/08/23 18:27 Dose: 0.5 mcg/kg/min, 33.2 mls/hr Documented By: Admin: 11/08/23 17:55 Dose: 0.25 mcg/kg/min, 16.6 mls/hr Documented By: JAZMINE Co-signed By: RANDY Discontinued Medications Bupivacaine HCl/Epinephrine Bitart (Bupivacaine/Epinephrine 0.5% Mpf 1:200,000 10 Ml Vial) Confirm Administered Dose 10 ml .ROUTE .[facility]K-MED ONE Stop: 11/08/23 11:22 Last Admin: 11/08/23 14:54 Dose: 10 ml Documented By: JUSTEN Bupivacaine HCl/Epinephrine Bitart (Bupivacaine/Epinephrine 0.5% Mpf 1:200,000 30 Ml Vial) Confirm Administered Dose 30 ml .ROUTE .[facility] ONE Stop: 11/08/23 14:56 Last Admin: 11/08/23 15:02 Dose: 10 ml Documented By: JUSTEN Cefazolin Sodium (Cefazolin 330 Mg/Ml 1 Gm Vial) Confirm Administered Dose 990 mg .ROUTE .[facility] Stop: 11/08/23 11:22 Last Admin: 11/08/23 14:58 Dose: 990 mg Documented By: JUSTEN Gelatin (Gelatin Sponge Sz 100) Confirm Administered Dose 1 each .ROUTE .[facility] ONE Stop: 11/08/23 11:23 Last Admin: 11/08/23 14:56 Dose: Not Given Documented By: CAROLINE Heparin Sodium/Sodium Chloride (Heparin In Nss Infusion 1000 Unit/500 Ml (2 U/Ml) Bag) Confirm Administered Dose 2,000 units IV .[facility] ONE Stop: 11/08/23 12:33 Last Admin: 11/08/23 14:53 Dose: 2,000 units Documented By: JUSTEN Cefazolin Sodium (Ancef 2000mg) 2,000 mg in 15 mls @ 3.75 mls/min IV PREOP JESSENIA; Protocol Stop: 11/08/23 16:00 Last Admin: 11/08/23 13:28 Dose: 3.75 mls/min Documented By: [id number] Lactated Ringer's (Lr) 1,000 mls @ 80 mls/hr IV .[id number] JESSENIA Stop: 11/08/23 18:29 Last Infusion: 11/08/23 13:20 Dose: Infused Documented By: Admin: 11/08/23 10:52 Dose: 80 mls/hr Documented By: EMMANUEL Iodixanol (Visipaque) 320 ml IV ONCE ONE Stop: 11/08/23 14:34 Last Admin: 11/08/23 14:55 Dose: 12 ml Documented By: JUSTEN Thrombin (Thrombin For Soln [id number] Unit Kit) Confirm Administered Dose 20,000 units .ROUTE .[facility] Stop: 11/08/23 11:22 Last Admin: 11/08/23 14:53 Dose: Not Given Documented By: CAROLINE Coding Level of Care Code 69029 CRITICAL CARE 1ST 30-74M Diagnoses Stenosis of right carotid artery I65.21 H/O: stroke Z86.73 CAD (coronary artery disease) I25.10
[2023-11-08] MEDS ORDERED: GLUCAGON FOR INJ 1 MG VIAL SQ PRN (19:50)
[2023-11-08] MEDS ORDERED: GLUCOSE 10 TAB/TUBE PO PRN (19:50)
[2023-11-08] MEDS ORDERED: CARBOHYDRATES FOR HYPOGLYCEMIA PO PRN (19:50)
[2023-11-08] MEDS ORDERED: GLUCOSE 40% GEL 15 GM TUBE PO PRN (19:50)
[2023-11-08] MEDS ORDERED: DEXTROSE 50% 50 ML SYRINGE IV PRN (19:50)
[2023-11-08] MEDS: TERAZOSIN HCL 1 MG CAP PO SCH (19:53)
[2023-11-08] MEDS: FINASTERIDE 5 MG TAB PO SCH (19:54)
[2023-11-08] MEDS: ATORVASTATIN 40 MG TAB PO SCH (19:54)
[2023-11-08] MEDS: ICU Protocol for HYPERglycemia SCH (19:54)
[2023-11-08] MEDS: ceFAZolin 2000MG 2,000 MG/15 ML SYR IV SCH (19:56)
[2023-11-09] MEDS: LOSARTAN POTASSIUM 25 MG TAB PO SCH (08:44)
[2023-11-09] MEDS: ASPIRIN 81 MG CHEW PO SCH (08:44)
[2023-11-09] MEDS: METOPROLOL SUCC 25MG EXT REL TAB PO SCH (08:45)
[2023-11-09] MEDS: CEROVITE ADV FORMULA TAB PO SCH (08:45)
[2023-11-09] MEDS: CLOPIDOGREL BISULFATE 75 MG TAB PO SCH (08:45)
--- NOTE | 2023-11-09 13:33 | Surgery Progress Note ---
Date of Service November 09, 2023 Assessment & Plan (1) Stenosis of right carotid artery: Plan: Patient pod #1 from a right TCAR. Doing well. Post op course uneventful. D/C today Admission and Anticipated Discharge Date Admission Date: November 08, 2023 Subjective Patient with no complaints. No focal neuro complaints Physical Exam Constitutional: WD/WN, vitals as above Respiratory: normal respiratory effort; no respiratory distress Cardiovascular: Rate/Rhythm: regular rate and regular rhythm Skin: + incision (dry and clean) Neurologic: CN's II-XI intact bilaterally and moves all extremities Psychiatric: Orientation: alert and oriented x 3 Results & Data Vital Signs (Past 12 Hours) Vital Signs Temp Pulse Resp BP Pulse Ox O2 Del Method 11/09/23 12:00 120/57 L 11/09/23 12:00 76 19 95 11/09/23 12:00 37 C 11/09/23 12:00 69 11/09/23 11:00 71 16 92 Room Air 11/09/23 10:50 105/61 11/09/23 10:50 68 19 95 11/09/23 10:00 142/70 H 11/09/23 10:00 70 14 96 11/09/23 09:00 130/69 11/09/23 09:00 66 16 94 11/09/23 08:00 119/66 11/09/23 08:00 61 12 11/09/23 08:00 37 C 11/09/23 07:46 62 11/09/23 07:45 63 13 98 11/09/23 07:30 59 L 14 98 11/09/23 07:15 66 98 11/09/23 07:02 65 18 99 Room Air 11/09/23 07:02 124/41 L 11/09/23 07:00 58 L 9 L 98 11/09/23 06:00 70 14 96 11/09/23 06:00 120/54 L 11/09/23 05:00 66 11 L 95 11/09/23 05:00 116/63 11/09/23 04:00 112/69 11/09/23 04:00 73 12 94 11/09/23 04:00 36.8 C 11/09/23 04:00 67 112/69 11/09/23 03:00 62 14 93 11/09/23 03:00 119/59 L 11/09/23 02:01 65 15 95 11/09/23 02:01 138/69 11/09/23 02:00 62 15 96
== END 2023-11-09 17:19 | disposition home or self-care (01) | DRG 36 ==
LOC: ASU 09:51 → 1E 10:36
PROC: EV.TCAR (2023-11-08 11:20)